=== PATIENT | female | born 1955 | race Caucasian/White ===

== ENCOUNTER 2016-08-25 11:17 | Day surgery (SDC) | payer MEDICARE, MEDICAID ==
[~2016-08-25] VITALS: Ht 157.5 cm; Wt 90.7 kg
[~2016-08-25 11:17] MED LIST: CLONIDINE 0.2M0.2 MG PO; COREG 6.25MG6.25 MG PO; DULOXETINE 30MG30 MG PO; GABAPENTIN 600600 MG PO; HYDROCHLOROTH12.5 M1 PO; IBUPROFEN800 MG PO; LEVOTHYROXIN0.075 M1 PO; LIPITOR40 MG PO; LISINOPRIL40 MG PO; OMEPRAZOLE40 MG PO; PRAVACHOL 40MG40 MG PO; RANITIDINE HCL150 MG PO; SOMA350 MG PO
[2016-08-25 11:45] VITALS: BP 158/78
[2016-08-25] MEDS ORDERED: ATENOLOL25 M1 PO (11:48)
[2016-08-25 12:17] VITALS: BP 158/78
[2016-08-25 12:18] VITALS: BP 114/78
--- NOTE | 2016-08-25 12:24 | Procedure Note ---
Procedure detail Date of procedure: 08/25/16 Anesthesiologist: Marcell Woods CRNA Complications: None Pre-procedure diagnosis: Degenerative disease lumbar spine multiple levels. Multilevel lumbar facet arthropathy. Post-procedure diagnosis: Same. Indications for procedure: This patient's a pleasant 61-year-old white female we've been treating her pain clinic for low back pain secondary to degenerative disease lumbar spine multiple levels as well as lumbar facet arthropathy. She is status post 2 lumbar epidural steroid injections and received minimal results. Patient complaining of constant low back pain that she describes as dull, achy, sharp, stabbing at times. Patient reports pain intensifies when standing for any length of time. She presents today for medial branch block L3-4, L4-5, L5-S1 bilateral. Procedure detail: Informed consent was obtained and the risk and benefits of the procedure was explained to the patient. Patient was taken to the procedure room where noninvasive monitors were placed, including noninvasive blood pressure cuff as well as pulse oximeter. The area over the lumbar spine was cleansed using chlorhexidine as a cleansing solution. I anesthetized the skin and subcutaneous tissues with 1% Lidocaine. I placed 22-gauge spinal needles into the facet joint / medial branches of [L3-L4, L4-L5, and L5-S1] bilaterally. Needle placement was confirmed with fluoroscopy. After confirmation of needle placement, each site was injected with 1 mL of 1% lidocaine and 0.25 % Marcaine and 10 mg of Depo- Medrol. A total of 80 mg of depo medrol was used for bilateral medial branch blocks of [L3-L4, L4-L5, and L5-S1] bilaterally. Patient tolerated the procedure without difficulty. There were no complications. Plan and disposition: Patient was reevaluated 10 minutes post procedure. Patient reports 75 percent improvement terms for lumbar back pain in flexion, extension, LEFT and RIGHT rotation. at 1224
[2016-08-25 12:30] VITALS: BP 151/89
== END 2016-08-25 12:30 ==
LOC: PM 11:17
PROC: 3E0T3BZ Introduction of Anesthetic Agent into Peripheral Nerves and Plexi, Percutaneous Approach (ICD-10-PCS; principal; 2016-08-25)
PROC: 3E0T33Z Introduction of Anti-inflammatory into Peripheral Nerves and Plexi, Percutaneous Approach (ICD-10-PCS; 2016-08-25)
PROC: BR161ZZ Fluoroscopy of Lumbar Facet Joint(s) using Low Osmolar Contrast (ICD-10-PCS; 2016-08-25)
DX: M54.06 Panniculitis affecting regions of neck and back, lumbar region (principal); M51.36 Other intervertebral disc degeneration, lumbar region
CPT/HCPCS: J1040